=== PATIENT | female | born 1960 | race Caucasian/White ===

== ENCOUNTER → 2016-12-29 | Outpatient (CLI) | payer BC ==
--- NOTE | 2016-12-30 13:03 | MM ---
Reason for exam: screening (asymptomatic). Last mammogram was performed 1 year and 4 months ago. History: Patient is postmenopausal and is nulliparous. Family history of breast cancer in grandmother. Physical Findings: A clinical breast exam by your physician is recommended on an annual basis and results should be correlated with mammographic findings. MG Screening Mammo w CAD Bilateral CC and MLO view(s) were taken. Prior study comparison: September 04, 2015, bilateral MG screening mammo w CAD. April 13, 2013, bilateral digital screening mammo w/CAD. January 18, 2012, bilateral digital screening mammo w/CAD. The breast tissue is heterogeneously dense. This may lower the sensitivity of mammography. No suspicious abnormality. No significant changes when compared with prior studies. ASSESSMENT: Negative, BI-RAD 1 RECOMMENDATION: Routine screening mammogram of both breasts in 1 year.
== END | disposition home or self-care (01) ==
LOC: RADMAMWWP 10:52
PROVIDERS: ATTEND Obstetrics & Gynecology
DX: Z12.31 Encounter for screening mammogram for malignant neoplasm of breast (principal); Z80.3 Family history of malignant neoplasm of breast

== ENCOUNTER 2017-08-31 10:10 | Day surgery (SDC) | payer BC ==
[2017-08-29 10:58] VITALS: BMI 31.1
[~2017-08-31 10:10] MED LIST: LACTATED RINGERS 1,000 ML IV SCH; LIDOCAINE 1% 20 ML VIAL (10MG/ML) FOR IV START INTRADERMA PRN
[2017-08-31 11:11] VITALS: RESP 18; TEMP 97.9
[2017-08-31] MEDS ORDERED: LIDOCAINE 1% INJ 10MG/ML (20 ML MDV) ONE (11:56)
[2017-08-31] MEDS ORDERED: GLYCOPYRROLATE 0.2 MG/ML 2 ML VIAL ONE (11:56)
[2017-08-31] MEDS ORDERED: PROPOFOL 10 MG/ML 20 ML VIAL IV ONE (11:56)
--- NOTE | 2017-08-31 12:05 | P.PCN ---
Date of Procedure: 08/31/17 Procedure(s) Performed: BRIEF HISTORY: Patient is a 57-year-old, pleasant, white female, scheduled for an upper endoscopy as a part of value should of intermittent dysphagia to solids and liquids for the last 1 year duration. Lately her symptoms have been progressively getting worse and almost on a daily basis. She denies any heartburn. PROCEDURE PERFORMED: Esophagogastroduodenoscopy with biopsy. PREOPERATIVE DIAGNOSIS: Dysphagia to solids and liquids for the last 6 months duration. IV sedation per anesthesia. PROCEDURE: After informed consent was obtained, the patient was brought into the endoscopy unit. IV sedation was administered by Anesthesia under continuous monitoring. Initially the Olympus GIF-140 video endoscope was inserted into the mouth. Esophagus intubated without any difficulty. It was gradually advanced into the stomach and duodenum and carefully examined. The bulb and the second part of the duodenum appeared normal. The scope at this time was withdrawn to the stomach, adequately insufflated with air, and upon careful examination, mucosa of the antrum, had mild gastritis and biopsies were done from this area. The body, cardia and the fundus appeared normal. The scope was then withdrawn into the esophagus. The GE junction was located at 39 cm from the incisors. There were 2 superficial erosions at the GE junction consistent with LA grade B reflux esophagitis. The rest of the esophagus appeared normal and the patient tolerated the procedure well. IMPRESSION: 1. Mild antral gastritis. 2. 2 superficial erosions at the GE junction consistent with LA grade B reflux esophagitis. RECOMMENDATIONS: The findings of this examination were discussed with the patient as well as her family. She was advised to follow with the biopsy results. She was advised to continue with Zantac 150 milligrams twice daily for 6 weeks. If she still remains symptomatic she can be given a trial of PPI for 6 weeks. If no help she can follow up in office for further evaluation.
[2017-08-31 12:46] VITALS: BP 143/81; PULSE 84
== END 2017-08-31 12:57 | disposition home or self-care (01) ==
LOC: ORWHC2ENDO 10:10
PROVIDERS: ATTEND Internal Medicine Gastroenterology
DX: K29.60 Other gastritis without bleeding (principal); K21.0 Gastro-esophageal reflux disease with esophagitis; K29.50 Unspecified chronic gastritis without bleeding; K22.10 Ulcer of esophagus without bleeding; R13.10 Dysphagia, unspecified; J45.909 Unspecified asthma, uncomplicated; K21.9 Gastro-esophageal reflux disease without esophagitis; Z79.02 Long term (current) use of antithrombotics/antiplatelets; Z79.51 Long term (current) use of inhaled steroids; Z79.899 Other long term (current) drug therapy; Z88.1 Allergy status to other antibiotic agents; Z88.5 Allergy status to narcotic agent; Z88.8 Allergy status to other drugs, medicaments and biological substances
CPT/HCPCS: 88305; 88342; 43239; J2001; J2704

== ENCOUNTER → 2018-05-31 | Outpatient (CLI) | payer BC ==
--- NOTE | 2018-05-31 12:38 | BD ---
EXAMINATION TYPE: Axial Bone Density DATE OF EXAM: 05/31/2018 COMPARISON: 2016 CLINICAL HISTORY: disorder of bone Height: 5'2 Weight: 169 FRAX RISK QUESTIONS: History of Fracture in Adulthood: y Secondary Osteoporosis: RISK FACTORS HISTORY OF: Family History of Osteoporosis: y Diet low in dairy products/other sources of calcium: y Postmenopausal woman: y MEDICATIONS: Additional Medications: anxiety, restless legs Additional History: EXAM MEASUREMENTS: Bone mineral densitometry was performed using the [employer] System. Bone mineral density as measured about the Lumbar spine is: ----- L1-L4(G/cm2): 1.010 T Score Values are as follows: ----- L2: -1.9 ----- L3: -0.5 ----- L4: -1.0 ----- L1-L4: -1.4 Bone mineral density has: Decreased -5.2% since study of: 09/04/2015 Bone mineral density about the R hip (g/cm2): 0.841 Bone mineral density about the L hip (g/cm2): 0.766 T Score values are as follows: -----R Neck: -1.4 -----L Neck: -2.0 -----R Total: -0.9 -----L Total: -0.9 Bone mineral density has: Decreased -5.0% since study of: 09/04/2015 IMPRESSION: Osteopenia (T Score between -2.5 and -1) persists in both hips and low back. Bone density slightly de creased or diminished from prior. There remains slightly increased risk of fracture and the patient may be considered for treatment. Re-Screen 2-5 years. NOTE: T-SCORE=SD OF THE YOUNG ADULT MEAN.
--- NOTE | 2018-06-01 09:42 | MM ---
Reason for exam: screening (asymptomatic). Last mammogram was performed 1 year and 5 months ago. History: Patient is postmenopausal and is nulliparous. Family history of breast cancer in grandmother. Physical Findings: A clinical breast exam by your physician is recommended on an annual basis and results should be correlated with mammographic findings. MG Screening Mammo w CAD Bilateral CC and MLO view(s) were taken. Prior study comparison: December 29, 2016, bilateral MG screening mammo w CAD. September 04, 2015, bilateral MG screening mammo w CAD. There are scattered fibroglandular densities. No significant changes when compared with prior studies. ASSESSMENT: Benign, BI-RAD 2 RECOMMENDATION: Routine screening mammogram of both breasts in 1 year.
== END | disposition home or self-care (01) ==
LOC: RADMAMWWP 07:46
PROVIDERS: ATTEND Obstetrics & Gynecology
DX: Z12.31 Encounter for screening mammogram for malignant neoplasm of breast (principal); Z13.820 Encounter for screening for osteoporosis; M85.852 Other specified disorders of bone density and structure, left thigh; M85.851 Other specified disorders of bone density and structure, right thigh; M85.88 Other specified disorders of bone density and structure, other site
CPT/HCPCS: 77067; 77080

== ENCOUNTER → 2021-05-29 | Outpatient (CLI) | payer BC ==
--- NOTE | 2021-06-01 08:36 | MM ---
Reason for exam: screening (asymptomatic). Last mammogram was performed 3 years ago. History: Patient is postmenopausal and is nulliparous. Family history of breast cancer in paternal grandmother at age 48. Physical Findings: A clinical breast exam by your physician is recommended on an annual basis and results should be correlated with mammographic findings. MG Screening Mammo w CAD Bilateral CC and MLO view(s) were taken. Prior study comparison: May 31, 2018, bilateral MG screening mammo w CAD. December 29, 2016, bilateral MG screening mammo w CAD. The breast tissue is heterogeneously dense. This may lower the sensitivity of mammography. There is no discrete abnormality. No significant changes when compared with prior studies. ASSESSMENT: Negative, BI-RAD 1 RECOMMENDATION: Routine screening mammogram of both breasts in 1 year.
== END | disposition home or self-care (01) ==
LOC: RADMAMWWP 10:43
PROVIDERS: ATTEND Obstetrics & Gynecology
DX: Z12.31 Encounter for screening mammogram for malignant neoplasm of breast (principal); Z80.3 Family history of malignant neoplasm of breast; Z78.0 Asymptomatic menopausal state
CPT/HCPCS: 77067

== ENCOUNTER → 2022-12-13 | Outpatient (CLI) | payer BC ==
--- NOTE | 2022-12-13 11:40 | BD ---
EXAMINATION TYPE: Axial Bone Density DATE OF EXAM: 12/13/2022 CLINICAL HISTORY: 62 years old Female. ICD-10 CODE: M85.88 OSTEOPENIA Height: 61.3 Weight: 163 FRAX RISK QUESTIONS: Glucocorticoids (More than 3mos): yes (Ex: prednisone, prednisolone, methylprednisolone, dexamethasone, and hydrocortisone). History of Fracture in Adulthood: yes RISK FACTORS HISTORY OF: hx of humerus fx as an adult, right arm. Surgery to Spine nerve ablation and injections for steroids only, no surg on the bones. Diet low in dairy products/other sources of calcium: yes Postmenopausal woman: yes, at age 53 yrs old Hyperparathyroidism: no Adrenal Insufficiency: no MEDICATIONS: Prednisone or other steroids: inhalers for asthma, 20+ yrs, allergy meds Additional Medications: bp meds, zoloft, reflux med, vit d and calcium Additional History: hypertension, anxiety, asthma, reflux, allergies, osteoarthritis, EXAM MEASUREMENTS: Bone mineral densitometry was performed using the [employer] System. Bone mineral density as measured about the Lumbar spine is: ----- L1-L4(G/cm2): 0.999 T Score Values are as follows: ----- L1: -2.6 ----- L2: -1.4 ----- L3: -0.9 ----- L4: -1.5 ----- L1-L4: -1.5 Z Score Values are as follows: ----- L1: -1.3 ----- L2: -0.2 ----- L3: 0.4 ----- L4: -0.3 ----- L1-L4: -0.2 Bone mineral density has: Decreased -1.1% since study of: 05.31.2018 Bone mineral density about the R hip (g/cm2): 0.855 Bone mineral density about the L hip (g/cm2): 0.817 T Score values are as follows: -----R Neck: -1.7 -----L Neck: -2.2 -----R Total: -1.2 -----L Total: -1.5 Z Score values are as follows: -----R Neck: -0.5 -----L Neck: -1.0 -----R Total: -0.3 -----L Total: -0.6 Bone mineral density has: Decreased -6.1% since study of: 05.31.2018 FRAX%s: The graph provided illustrates a 28.7% chance for a major osteoporotic fx and a 6.1% chance f or the hips probability for fx in 10 years time. IMPRESSION: Osteopenia (T Score between -2.5 and -1). There is slightly increased risk of fracture and the patient may be considered for treatment. Re-Screen 2-5 years. NOTE: T-SCORE=SD OF THE YOUNG ADULT MEAN.
--- NOTE | 2022-12-13 13:53 | MM ---
Reason for Exam: Screening (asymptomatic). Last mammogram was performed 1 year(s) and 6 month(s) ago. Patient History: Menarche at age 10. Patient has no children. Postmenopausal. Paternal grandmother had breast cancer, age 48. Risk Values: Tamra 5 year model risk: 1.8%. NCI Lifetime model risk: 7.2%. Prior Study Comparison: 12/29/2016 Bilateral Screening Mammogram, [facility]. 05/31/2018 Bilateral Screening Mammogram, [facility]. 05/29/2021 Bilateral Screening Mammogram, [facility]. Tissue Density: There are scattered fibroglandular densities. Findings: Analyzed By CAD. There is no suspicious group of microcalcifications or new suspicious mass. Overall Assessment: Negative, BI-RAD 1 Management: Screening Mammogram of both breasts in [address] [facility] will attempt to contact patient to return for supplemental views and ultrasound if indicated. Patient should continue monthly self-breast exams. A clinical breast exam by your physician is recommended on an annual basis. This exam should not preclude additional follow-up of suspicious palpable abnormalities. Note on Tamra scores and lifetime risk: 1. A Tamra score greater than 3% is considered moderate risk. If this is the case, consider specialist referral to assess eligibility for a risk reducing agent. 2. If overall lifetime risk for the development of breast cancer is 20% or higher, the patient may qualify for future screening with alternating mammogram and breast MRI. Electronically signed and approved by: Idris Valenzuela DO
== END | disposition home or self-care (01) ==
LOC: RADMAMWWP 10:42
PROVIDERS: ATTEND Obstetrics & Gynecology
DX: Z12.31 Encounter for screening mammogram for malignant neoplasm of breast (principal); M81.0 Age-related osteoporosis without current pathological fracture; M85.89 Other specified disorders of bone density and structure, multiple sites; Z78.0 Asymptomatic menopausal state; Z80.3 Family history of malignant neoplasm of breast
CPT/HCPCS: 77063; 77067; 77080

== ENCOUNTER 2023-08-19 20:22 | Emergency (ER) | payer MEDICARE, OTHER ==
[2023-08-19 20:43] VITALS: RESP 18; TEMP 98.2
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
[2023-08-19] MEDS: traMADol 50 MG TAB PO STA (22:20)
[2023-08-19] MEDS: ACETAMINOPHEN TAB 500 MG TAB PO STA (22:21)
[2023-08-19] MEDS: IBUPROFEN 600 MG STARTER PACK 4 TAB BTL PO STA (22:23)
[2023-08-19] MEDS: IBUPROFEN 800 MG TAB PO STA (22:23)
[2023-08-19] MEDS: traMADol 50 MG STARTER PACK 3 TAB BTL PO STA (23:08)
[2023-08-19 23:15] VITALS: BP 122/78; PULSE 68
--- NOTE | 2023-08-19 23:17 | XR ---
EXAM: XR Left Wrist Complete, 3 or More Views CLINICAL HISTORY: Post reduction TECHNIQUE: Frontal, lateral and oblique views of the left wrist. COMPARISON: 08/19/2023 20:56 FINDINGS: Redemonstrated acute comminuted fracture of the distal radial metaphysis with volar displacement of the distal fracture fragment of up to 5 mm, not significantly changed. No other fracture identified. No dislocation. Bone mineralization within normal limits. Surrounding soft tissue swelling. IMPRESSION: No significant interval change.
--- NOTE | 2023-08-19 23:29 | XR ---
EXAMINATION TYPE: XR wrist complete LT DATE OF EXAM: 08/19/2023 COMPARISON: Earlier exam HISTORY: Fracture TECHNIQUE: Three-view right wrist FINDINGS: There is a transverse fracture in the distal metaphyseal radius. This is somewhat comminute d with a longitudinal component extending along the radial aspect into the articular surface. Some an terior angulation of the radial distal fracture fragment is present. No additional fractures are identified. IMPRESSION: 1. Comminuted fracture distal metaphyseal radius with intra-articular extension
--- NOTE | 2023-08-19 23:30 | XR ---
EXAMINATION TYPE: XR hand complete LT DATE OF EXAM: 08/19/2023 COMPARISON: None HISTORY: Fall pain TECHNIQUE: Three-view left hand FINDINGS: Distal radial fracture again evident. Please see wrist dictation same date Degenerative change at the first carpal metacarpal junction. There is some narrowing joint space of t he cyst index and middle finger metacarpophalangeal joint spaces. Mild diffuse joint space narrowing of the proximal distal interphalangeal joint spaces present. This is more advanced in the index and m iddle fingers distally. No displaced fractures evident within the hand. Soft tissues appear normal over the hand. Prominent s oft tissue swelling is over the wrist IMPRESSION: 1. Fracture of the distal radius discussed and wrist dictation. 2. No acute osseous abnormality within the left hand
== END 2023-08-19 23:12 | disposition home or self-care (01) ==
LOC: EC 20:22
DX: S52.572A Other intraarticular fracture of lower end of left radius, initial encounter for closed fracture (principal); Z88.1 Allergy status to other antibiotic agents; Z88.5 Allergy status to narcotic agent; Z88.8 Allergy status to other drugs, medicaments and biological substances; W01.0XXA Fall on same level from slipping, tripping and stumbling without subsequent striking against object, initial encounter; Y92.009 Unspecified place in unspecified non-institutional (private) residence as the place of occurrence of the external cause
CPT/HCPCS: 25565; 99152; 99283

== ENCOUNTER → 2023-08-26 | Outpatient (CLI) | payer MEDICARE, OTHER ==
[2023-08-26 15:05] LABS: Basophils # (A) 0.04 X 10*3/uL (0.00-0.10); Basophils % (A) 0.5 %; Eosinophils # (A) 0.38 X 10*3/uL (0.04-0.35); Eosinophils % (A) 4.7 %; HCT 42.1 % (37.2-46.3); HGB 13.8 g/dL (12.0-15.0); Lymphocytes # (A) 1.98 X 10*3/uL (0.90-5.00); Lymphocytes % (A) 24.5 %; MCH 29.2 pg (27.0-32.0); MCHC 32.8 g/dL (32.0-37.0); Mean Platelet Volume 10.7 FL (9.5-12.2); Monocytes # (A) 0.53 X 10*3/uL (0.20-1.00); Monocytes % (A) 6.6 %; NRBC Per 100 WBC 0 X 10*3/uL (0.00-0.01); Neutrophils # (A) 5.12 X 10*3/uL (1.80-7.70); Neutrophils % (A) 63.3 %; Platelet Count 217 X 10*3/uL (140-440); RBC 4.73 X 10*6/uL (4.10-5.20); RDW 14.7 % (11.5-14.5); WBC 8.08 X 10*3/uL (4.50-10.00)
[2023-08-26 16:10] LABS: BUN/Creat Ratio 17.12 Ratio (12.00-20.00); Blood Urea Nitrogen 13.7 mg/dL (9.0-27.0); Calcium 9.5 mg/dL (8.7-10.3); Carbon Dioxide 24.5 mmol/L (21.6-31.8); Chloride 103 mmol/L (96-109); Glucose 99 mg/dL (70-110); Potassium 3.8 mmol/L (3.5-5.5); Sodium 141 mmol/L (135-145)
== END | disposition home or self-care (01) ==
LOC: LABPAT 09:28
PROVIDERS: ATTEND Orthopaedic Surgery Hand Surgery
DX: Z01.812 Encounter for preprocedural laboratory examination (principal); S52.572A Other intraarticular fracture of lower end of left radius, initial encounter for closed fracture
CPT/HCPCS: 80048; 85025

== ENCOUNTER 2023-08-31 08:38 | Day surgery (SDC) | payer MEDICARE, OTHER ==
[2023-08-29 15:35] VITALS: BMI 29.2
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
[~2023-08-31 08:38] MED LIST changes: +HYDROmorphone 0.5 MG/0.5 ML SYRINGE IVP PRN; -LACTATED RINGERS 1,000 ML IV SCH; -LIDOCAINE 1% 20 ML VIAL (10MG/ML) FOR IV START INTRADERMA PRN; +fentaNYL (PF) 50 MCG/ML 2 ML AMP IV PRN
[2023-08-31] MEDS: IV FLUID CONTINUATION 1,000 ML IV ONE (08:51)
[2023-08-31 09:00] VITALS: RESP 16
[2023-08-31] MEDS: MIDAZOLAM 2 MG/2 ML VIAL IVP ONE (09:27)
[2023-08-31] MEDS: fentaNYL (PF) 50 MCG/ML 2 ML AMP IVP ONE (09:27)
[2023-08-31] MEDS: LACTATED RINGERS 1,000 ML IV SCH (09:37)
[2023-08-31] MEDS: ONDANSETRON 4 MG/2 ML VIAL IVP ONE (09:38)
[2023-08-31] MEDS: DEXAMETHASONE SOD PHOSPHATE 4 MG/ML 1 ML VIAL IVP STA (09:42)
--- NOTE | 2023-08-31 09:48 | P.ANPRN ---
Procedure Note - Anesthesia - Nerve Block Performed Left Axillary Single Time Out Performed: Yes Date of Procedure: 08/31/23 (09) Procedure Start Time: : Procedure Stop Time: :33 Location of Patient: PreOp Indication: Acute Post-Operative Pain, Requested by Surgeon Sedation Type: Sedate with meaningful contact maintained Preparation: Sterile Prep Position: Supine Needle Types: Pajunk Needle Gauge: 21 Ultrasound used to visualize needle placement: Yes Ultrasound used to observe medication spread: Yes Injectate: 0.5% Ropivacaine (see comment for volume) (25 ml +4 mg Dexamethasone) Blood Aspirated: No Pain Paresthesia on Injection Noted: No Resistance on Injection: Normal Image Stored and Saved: Yes Events: Uneventful and Well Tolerated
[2023-08-31] MEDS ORDERED: PROPOFOL 10 MG/ML 20 ML VIAL IV ONE (10:08)
[2023-08-31] MEDS ORDERED: fentaNYL (PF) 50 MCG/ML 2 ML AMP ONE (10:08)
[2023-08-31] MEDS ORDERED: MIDAZOLAM 2 MG/2 ML VIAL ONE (10:08)
[2023-08-31] MEDS ORDERED: ROPIVACAINE 5 MG/ML 30 ML VIAL ONE (10:08)
[2023-08-31] MEDS ORDERED: DEXAMETHASONE SOD PHOSPHATE 4 MG/ML 1 ML VIAL ONE (10:08)
[2023-08-31] MEDS ORDERED: LIDOCAINE 1% INJ 10MG/ML (20 ML MDV) ONE (10:08)
[2023-08-31] MEDS ORDERED: GLYCOPYRROLATE 0.2 MG/ML 2 ML VIAL ONE (10:08)
[2023-08-31 11:17] VITALS: TEMP 97
--- NOTE | 2023-08-31 11:32 | P.OP ---
Date of Procedure: 08/31/23 Preoperative Diagnosis: Left intra-articular distal radius fracture Postoperative Diagnosis: Left intra-articular distal radius fracture Procedure(s) Performed: Left intra-articular distal radius fracture open reduction internal fixation, 3 parts Surgeon: Dhaval Mccoy [employer] #1: Madi Dempsey Estimated Blood Loss (ml): 10 Pathology: none sent Condition: stable Disposition: PACU Description of Procedure: This is a 63 year old female who sustained a displaced intra-articular distal radius fracture and presents today for open reduction internal fixation of their left distal radius fracture. Risks and benefits of surgery were discussed with the patient including bleeding, damage to surrounding tissue, infection, need for further surgery as well as risks of anesthesia including pulmonary embolism and even and the patient wished to proceed with surgical intervention. The patients was seen in the pre-operative area by myself. Consent and H&P were completed and updated. The correct extremity was marked in the pre-operative area by myself and all other questions were answered. Operative Narrative: The patient was brought to the operating room by the department of anesthesia. They remained on the portable stretcher and a rolling hand table was brought to the side of the operative extremity. Pre-operative time out was performed indicating the correct patient, procedure and laterality. All in the room agreed. Pre-operative antibiotics were given prior to skin incision. The patient was then drifted off to sleep by the department of anesthesia. A nonsterile tourniquet was then applied to the operative extremity and the left upper extremity was then prepped and draped in normal sterile fashion. The operative extremity was the exsanguinated with an esmarch bandage and the tourniquet was inflated to 250mmHg. A longitudinal incision centered over the FCR tendon was made with a 15-blade scalpel. Blunt dissection was taken down to the FCR tendon sheath using Bovie cautery for meticulous hemostasis. The FCR sheath was opened with tenotomy scissors. The floor of the FCR sheath was then incised with a 15-blade scalpel and the FPL tendon and muscle belly was swept bluntly in an ulnar direction to reveal the pronator quadratus. Pronator quadratus was sharply incised with a 15-blade scalpel along the radial border of the distal radius, coming across transversely parallel to the joint at the level of the watershed line, radial artery was identified and protected. Periosteal elevator was then used to elevate the pronator quadratus off the distal radius from a radial to ulnar fashion. A [place] elevator was used to lever the distal piece back into place and free up the fractured fragments. A narrow width 3 hole Edie Variax 2 titanium volar locking distal radius plate was chosen to fit the patients anatomy best. This was placed on the distal radius under direct visualization and the oblong hole was drilled and filled with a non-locking screw. The fracture was then reduced to the plate distally and a k-wire was placed in the ulnar most k-wire hole in the proximal row. Fluoroscopy was then utilized to confirm correct placement of plate in the radial/ulnar plane and distal k-wire placement was confirmed to be proximal to the subchondral bone on 20 degree elevated lateral view confirming extra-articular screw placement. Anabaptism of radial height, inclination and volar tilt was achieved. The distal rows and radial styloid screw holes were then drilled and filled from ulnar to radial with locking screws. Attention was then brought to the proximal shaft screws. Proximal nonlocking and locking shaft screws were drilled, measured, and filled. The wrist joint was the ranged and full smooth flexion/extension with no crepitus appreciated. Final imaging was taken confirming extra-articular placement of distal screws at DRUJ and radiocarpal joint. The wound was then irrigated. Subcutaneous closure was performed with 4-0 monocryl followed by skin closure with 4-0 monocryl running suture. Sterile dressing consisting of steri strips, 4x4s, and a volar plaster splint was applied. Tourniquet was let down and the hand had immediate perfusion. The patient was then woken by the department of anesthesia and transferred to PACU in stable condition. Madi GRANADOS was present for the case and assisted in major portions of the operation and hardware placement. Dhaval Mccoy D.O. Orthopedic Hand/Upper Extremity Surgeon
[2023-08-31 12:33] VITALS: BP 143/63; PULSE 78
== END 2023-08-31 13:26 | disposition home or self-care (01) ==
LOC: OR 08:38
PROVIDERS: ATTEND Orthopaedic Surgery Hand Surgery
DX: S52.572A Other intraarticular fracture of lower end of left radius, initial encounter for closed fracture (principal); G89.18 Other acute postprocedural pain; I10 Essential (primary) hypertension; J45.909 Unspecified asthma, uncomplicated; K21.9 Gastro-esophageal reflux disease without esophagitis; Z79.1 Long term (current) use of non-steroidal anti-inflammatories (NSAID); Z79.51 Long term (current) use of inhaled steroids; Z88.1 Allergy status to other antibiotic agents; Z88.5 Allergy status to narcotic agent; Z88.8 Allergy status to other drugs, medicaments and biological substances; Z90.49 Acquired absence of other specified parts of digestive tract; W01.0XXA Fall on same level from slipping, tripping and stumbling without subsequent striking against object, initial encounter; Y93.01 Activity, walking, marching and hiking
CPT/HCPCS: 64415; 25609; C1713; J2250; J1100; J0690; J2405; J2001; J3010; J2795; J2704

== ENCOUNTER → 2024-05-01 | Outpatient (CLI) | payer MEDICARE, OTHER ==
--- NOTE | 2024-05-01 15:47 | MM ---
Reason for Exam: Screening (asymptomatic). Last mammogram was performed 1 year(s) and 5 month(s) ago. Patient History: Menarche at age 10. Patient has no children. Postmenopausal. Paternal grandmother had breast cancer, age 48. Risk Values: Tamra 5 year model risk: 1.9%. NCI Lifetime model risk: 6.7%. Prior Study Comparison: 05/31/2018 Bilateral Screening Mammogram, [facility]. 05/29/2021 Bilateral Screening Mammogram, [facility]. 12/13/2022 Bilateral MG 3D screening mammo w/cad, [facility]. Tissue Density: There are scattered areas of fibroglandular density. Findings: Analyzed By CAD. A focal asymmetry in the posterior depth outer aspect of right breast is more prominent versus prior study, corresponding abnormality seen on MLO view. Further workup advised. Overall Assessment: Incomplete: need additional imaging evaluation, BI-RAD 0 Management: Special View Mammogram of the right breast. Return for additional views including spot CC and true lateral views right breast. Summation density versus true lesion. Patient should monthly self-breast exams. A clinical breast exam by your physician is recommended on an annual basis. This exam should not preclude additional follow-up of suspicious palpable abnormalities. Note on Tamra scores and lifetime risk: 1. A Tamra score greater than 3% is considered moderate risk. If this is the case, consider specialist referral to assess eligibility for a risk reducing agent. 2. If overall lifetime risk for the development of breast cancer is 20% or higher, the patient may qualify for future screening with alternating mammogram and breast MRI. [facility], , 05/01/2024 3:44 PM. Electronically signed and approved by: Byron Quigley M.D.
== END | disposition home or self-care (01) ==
LOC: RADMAMWWP 15:07
PROVIDERS: ATTEND Family Medicine
DX: Z12.31 Encounter for screening mammogram for malignant neoplasm of breast (principal); R92.323 Mammographic fibroglandular density, bilateral breasts; Z78.0 Asymptomatic menopausal state; Z80.3 Family history of malignant neoplasm of breast
CPT/HCPCS: 77063; 77067